=== PATIENT | female | born 1965 | race Caucasian/White ===

== ENCOUNTER 2017-02-17 11:36 | Observation (INO) | payer OTHER ==
[2017-02-17] VITALS (8 sets, daily range): BP systolic 114–130; BP diastolic 65–80; PULSE 74–103; RESP 16–20; TEMP 97.8–98.7; O2SAT 95–99
[~2017-02-17] VITALS: Ht 157.5 cm; Wt 63.9 kg
[~2017-02-17 11:36] MED LIST: AMLO5 PO; ARIP2 PO; ATEN-102 PO; LEVA500T PO; LEVO.1 PO; PANT40IN3 PO; PAXI40TA PO; SIMV40TA PO; THIA100T PO
[2017-02-17] MEDS ORDERED: LEVO.1 PO (11:50)
[2017-02-17] MEDS ORDERED: ZOCO40TA PO (11:50)
[2017-02-17] MEDS ORDERED: PAXI30TA7 PO (11:50)
[2017-02-17] MEDS ORDERED: ATEN50TA PO (11:50)
[2017-02-17] MEDS ORDERED: ABIL2TAB2 PO (11:50)
--- NOTE | 2017-02-17 12:06 | PD ---
HPI Chief Complaint: GI Complaint Time Seen by Provider: 12:06 Travel History International Travel<30 days: No Contact w/Intl Traveler<30days: No Traveled to known affect area: No History of Present Illness HPI 51-year-old female presents to the emergency department for evaluation of flulike symptoms 7 ongoing for 1 week. She reports body aches, intermittent fevers, nausea, vomiting, diarrhea, cough, intermittent wheezing, intermittent shortness of breath. Patient states she ran a 101 fever yesterday. She's had no fever today. She does report a history of COPD, history of pneumonia, hypertension, alcoholism, hypothyroidism, depression, hyperlipidemia, migraines. She states she has used an inhaler today without improvement. She also reports history of alcoholism. She states that she normally drinks 3 alcoholic drinks a 10% alcohol content, but drinks 6 of these yesterday. She states she would like to detox is not drinking anything since. She does report a history of alcohol withdrawal seizures. Patient is concerned she will have a seizure. She states her last seizure was in July 2016 from alcohol withdrawal. PFSH Past Medical History Hx Anticoagulant Therapy: No Arthritis: Yes Asthma: No Blood Disorders: No Bipolar Disorder: Yes Anxiety: Yes Depression: Yes Cancer: No Cardiovascular Problems: Yes (HBP) High Cholesterol: Yes Chemotherapy: No COPD: Yes Cerebrovascular Accident: No Diabetes: No Diminished Hearing: No Endocrine: Yes Gastrointestinal Disorders: Yes GERD: Yes Genitourinary: No Headaches: Yes Hiatal Hernia: No Immune Disorder: No Implanted Vascular Access Dvce: No Musculoskeletal: Yes Neurologic: Yes (seizures) Psychiatric: Yes (PTSD) Reproductive: No Respiratory: Yes (COPD) Migraines: Yes Radiation Therapy: No Seizures: Yes (APPROX 1 YR AGO) Sleep Apnea: No Thyroid Disease: Yes Ulcer: No Tetanus Vaccination: > 5 Years Influenza Vaccination: Yes ?: Not Menopausal: Yes : 3 Para: 0 Miscarriage: 3 : 0 Past Surgical History AICD: No Arteriovenous Shunt: No Gynecologic Surgery: Yes (LAPAROSCOPIC OVARIAN CYST REMOVAL LEFT) Hysterectomy: No Insulin Pump: No Joint Replacement: No Pacemaker: No Thoracic Surgery: Yes (DILITATION ESOPHAGEAL 12/29) Other Surgery: Yes (Laproscopy) Social History Alcohol Use: Yes (DAILY) Tobacco Use: Yes (1/2 PPD) Substance Use: Yes (MARIJUANA 1-2 TIMES A WEEK) Allergies-Medications (Allergen,Severity, Reaction): Coded Allergies: Codeine (Verified Adverse Reaction, Severe, Itching, 02/17/17) Haldol (Verified Adverse Reaction, Severe, Nausea/Vomiting, 02/17/17) Toradol (Verified Adverse Reaction, Severe, 02/17/17) MAKES HER "WALK SIDEWAYS" AND "RUN INTO THINGS" Tramadol (Verified Adverse Reaction, Severe, 02/17/17) MAKE HER "WALK SIDEWAYS" AND "RUN INTO THINGS" Trazodone (Verified Adverse Reaction, Severe, Hallucinations, 02/17/17) Reported Meds & Prescriptions Reported Meds & Active Scripts Active Reported Zocor (Simvastatin) 40 Mg Tab 40 Mg PO DAILY Abilify (Aripiprazole) 2 Mg Tab 2 Mg PO DAILY Atenolol 50 Mg Tab 50 Mg PO DAILY Synthroid (Levothyroxine Sodium) 100 Mcg Tab 100 Mcg PO DAILY Paxil (Paroxetine HCl) 30 Mg Tab 30 Mg PO DAILY Review of Systems Except as stated in HPI: all other systems reviewed are Neg Physical Exam Narrative GENERAL: Well-nourished, well-developed female patient, ambulatory. Afebrile. SKIN: Focused skin assessment warm/dry. HEAD: Normocephalic. Atraumatic. EYES: No scleral icterus. No injection or drainage. NECK: Supple, trachea midline. No JVD or lymphadenopathy. CARDIOVASCULAR: Regular rate and rhythm without murmurs, gallops, or rubs. RESPIRATORY: Breath sounds equal bilaterally. No accessory muscle use. Lungs sounds were slight expiratory wheezes, diminished throughout.. GASTROINTESTINAL: Abdomen soft, non-tender, nondistended. MUSCULOSKELETAL: No cyanosis, or edema. BACK: Nontender without obvious deformity. No CVA tenderness. Data Data Last Documented VS Vital Signs Date Time Temp Pulse Resp B/P Pulse Ox O2 Delivery O2 Flow Rate FiO2 02/17/17 12:05 97 Room Air 02/17/17 12:05 18 02/17/17 11:42 97.8 74 130/80 Orders Complete Blood Count With Diff (02/17/17 12:02) Comprehensive Metabolic Panel (02/17/17 12:02) Magnesium (Mg) (02/17/17 12:02) Ckmb (Isoenzyme) Profile (02/17/17 12:02) Troponin I (02/17/17 12:02) Urinalysis - C+S If Indicated (02/17/17 12:02) Iv Access Insert/Monitor (02/17/17 12:02) Electrocardiogram (02/17/17 12:02) Ecg Monitoring (02/17/17 12:02) Oximetry (02/17/17 12:02) Oxygen Administration (02/17/17 12:02) Sodium Chloride 0.9% Flush (Ns Flush) (02/17/17 12:15) Methylprednisolone So Succ Inj (Solumedr (02/17/17 12:15) Albuterol-Ipratropium Neb (Duoneb Neb) (02/17/17 12:15) Alcohol (Ethanol) (02/17/17 12:02) Ondansetron Inj (Zofran Inj) (02/17/17 12:15) Sodium Chlor 0.9% 1000 Ml Inj (Ns 1000 M (02/17/17 12:15) Lorazepam (Ativan) (02/17/17 12:30) Chest, Single Ap (02/17/17 ) Blood Culture (02/17/17 13:36) Lactic Acid Sepsis Protocol (02/17/17 13:36) Ceftriaxone Inj (Rocephin Inj) (02/17/17 13:45) Azithromycin Inj (Zithromax Inj) (02/17/17 13:45) Aripiprazole (Abilify) (02/18/17 09:00) Atenolol (Tenormin) (02/18/17 09:00) Levothyroxine (Synthroid) (02/18/17 09:00) (Nf) Paroxetine (Paxil) (02/18/17 09:00) (Nf) Simvastatin (Zocor) (02/18/17 09:00) Labs Laboratory Tests Test 02/17/17 02/17/17 12:01 12:08 Urine Color YELLOW Urine Turbidity CLEAR Urine pH 6.5 Urine Specific [place] 1.006 Urine Protein 30 mg/dL Urine Glucose (UA) NEG mg/dL Urine Ketones NEG mg/dL Urine Occult Blood SMALL Urine Nitrite NEG Urine Bilirubin NEG Urine Urobilinogen LESS THAN 2.0 MG/DL Urine Leukocyte Esterase NEG Urine RBC 1 /hpf Urine WBC LESS THAN 1 /hpf Urine Squamous Epithelial 2 /hpf Cells Urine Hyaline Casts 1 /lpf Microscopic Urinalysis Comment CULT NOT INDICATED White Blood Count 19.7 TH/MM3 Red Blood Count 4.75 MIL/MM3 Hemoglobin 13.2 GM/DL Hematocrit 40.0 % Mean Corpuscular Volume 84.2 FL Mean Corpuscular Hemoglobin 27.9 PG Mean Corpuscular Hemoglobin 33.1 % Concent Red Cell Distribution Width 18.0 % Platelet Count 393 TH/MM3 Mean Platelet Volume 8.5 FL Neutrophils (%) (Auto) 86.7 % Lymphocytes (%) (Auto) 7.5 % Monocytes (%) (Auto) 4.5 % Eosinophils (%) (Auto) 0.9 % Basophils (%) (Auto) 0.4 % Neutrophils # (Auto) 17.1 TH/MM3 Lymphocytes # (Auto) 1.5 TH/MM3 Monocytes # (Auto) 0.9 TH/MM3 Eosinophils # (Auto) 0.2 TH/MM3 Basophils # (Auto) 0.1 TH/MM3 CBC Comment DIFF FINAL Differential Comment Sodium Level 129 MEQ/L Potassium Level 3.7 MEQ/L Chloride Level 92 MEQ/L Carbon Dioxide Level 22.3 MEQ/L Anion Gap 15 MEQ/L Blood Urea Nitrogen 5 MG/DL Creatinine 0.50 MG/DL Estimat Glomerular Filtration 129 ML/MIN Rate Random Glucose 91 MG/DL Calcium Level 8.9 MG/DL Magnesium Level 2.2 MG/DL Total Bilirubin 0.6 MG/DL Aspartate Amino Transf 33 U/L (AST/SGOT) Alanine Aminotransferase 14 U/L (ALT/SGPT) Alkaline Phosphatase 135 U/L Total Creatine Kinase 35 U/L Troponin I LESS THAN 0.02 NG/ML Total Protein 7.6 GM/DL Albumin 2.5 GM/DL Ethyl Alcohol Level LESS THAN 3 MG/DL MDM Medical Decision Making Medical Screen Exam Complete: Yes Emergency Medical Condition: Yes Medical Record Reviewed: Yes Interpretation(s) Last Impressions Chest X-Ray 02/17/17 0000 Signed Impressions: Service Date/Time: Friday, February 17, 2017 12:46 - CONCLUSION: Subtle patchy interstitial densities could be acute or chronic. Christ Saucedo MD Differential Diagnosis URI versus viral syndrome versus pneumonia versus alcohol withdrawal Narrative Course 51-year-old female presents to the emergency department for evaluation of flulike symptoms for the past week. She does report drinking 6 large alcoholic drink yesterday, but has not had anything to drink today. She is concerned of alcohol withdrawal. EKG, CBC, CMP, magnesium, CK, troponin, alcohol level, UA are ordered and pending. Chest x-ray is ordered and pending. Patient is given Solumedrol 125 mg IV, DuoNeb 3. Patient is given normal saline 1 L IV bolus. EKG shows sinus rhythm, heart rate 69, no acute ST changes. CBC shows leukocytosis 19.7, neutrophil percentage 86.7. CMP shows hyponatremia 129, alkaline phosphatase 135. Magnesium is 2.2. CK is 35. Troponin is less than 0.02. Alcohol level is less than 3. UA is negative for acute infection. Chest x-ray shows subtle patchy interstitial densities could be acute or chronic. Blood cultures 2 and lactic acid are ordered and pending. Due to elevated white count, the patient will be brought in for 23 observation for pneumonia. She is given Rocephin 1 g IV and azithromycin 500 mg IV. I discussed case with my attending physician, Dr. Denis, who recommends admission. [facility] is paged for admission. Dr. Ren accepted admission. Diagnosis Primary Impression: Pneumonia Qualified Code: J18.9 - Pneumonia due to infectious organism, unspecified laterality, unspecified part of lung Admitting Information Admitting Physician Requests: Observation Betty Adkins February 17, 2017 12:06
[2017-02-17] MEDS ORDERED: ONDANSETRON HCL 4 MG/2 ML VIAL IV PUSH ONE (12:15)
[2017-02-17] MEDS ORDERED: SODIUM CHLORIDE 0.9% FLUSH 10 ML FLUSH IVF PRN (12:15)
[2017-02-17] MEDS ORDERED: SODIUM CHLOR 0.9% 1000 ML INJ 1,000 ML IV ONE (12:15)
[2017-02-17] MEDS ORDERED: methylPREDNISolone SOD SUCC 125 MG/2 ML VIAL IVP ONE (12:15)
[2017-02-17] MEDS: RESP: ALBUTEROL 2.5 MG/IPRATROPIUM 0.5 MG NEB (SCH) INH (12:16)
[2017-02-17] MEDS ORDERED: LORazepam 1 MG TAB PO ONE (12:30)
[2017-02-17 12:57] LABS: AUTOMATED NEUTROPHIL # 17.1 TH/MM3 (1.8-7.7); BASOPHIL # 0.1 TH/MM3 (0-0.2); BASOPHIL % 0.4 % (0.0-2.0); EOSINOPHIL # 0.2 TH/MM3 (0-0.4); EOSINOPHIL % 0.9 % (0.0-4.0); HEMO FLAGS DIFF FINAL; LYMPH % 7.5 % (9.0-44.0); LYMPHOCYTE # 1.5 TH/MM3 (1.0-4.8); MEAN CELL VOLUME 84.2 FL (80.0-100.0); MEAN CORPUSCULAR HEMOGLOBIN 27.9 PG (27.0-34.0); MEAN CORPUSCULAR HGB CONC 33.1 % (32.0-36.0); MONO % 4.5 % (0.0-8.0); NEUT % 86.7 % (16.0-70.0); PLATELET COUNT 393 TH/MM3 (150-450); RED BLOOD COUNT 4.75 MIL/MM3 (4.00-5.30); WHITE BLOOD COUNT 19.7 TH/MM3 (4.0-11.0)
[2017-02-17 13:08] LABS: BLOOD, URINE SMALL (NEG); COMMENT (UR) CULT NOT INDICATED; CULTURE IF INDICATED CULT NOT INDICATED; GLUCOSE,URINE NEG (NEG); HYALINE CAST, URINE 1 /lpf (RARE); KETONE, URINE NEG (NEG); NITRITE,URINE NEG (NEG); PH, URINE 6.5 (5.0-8.5); SQUAMOUS EPITHELIAL CELL URINE 2 /hpf (0-5); URINE COLOR YELLOW (YELLW/STRAW)
[2017-02-17 13:20] LABS: ANION GAP 15 MEQ/L (5-15)
--- NOTE | 2017-02-17 13:23 | RADRPT ---
EXAM DATE/TIME: 02/17/2017 12:46 [facility] COMPARISON: CHEST PA & LAT, August 07, 2016, 14:54. CHEST SINGLE AP, January 01, 2016, 8:05. INDICATIONS : Short of breath, sharp pain upper left chest from anterior side to posterior, smoker MEDICAL HISTORY : Chronic obstructive pulmonary disease. pneumothorax with chest tube years ago SURGICAL HISTORY : None. ENCOUNTER: Initial ACUITY: 2 days PAIN SCORE: 7/10 LOCATION: Left chest FINDINGS: A single view of the chest demonstrates subtle patchy interstitial densities. Heart normal size. Oss eous structures are intact. Scoliotic changes. CONCLUSION: Subtle patchy interstitial densities could be acute or chronic. Christ Saucedo MD on February 17, 2017 at 13:19 Board Certified Radiologist. This report was verified electronically.
[2017-02-17 13:24] LABS: ALKALINE PHOSPHATASE 135 U/L (45-117); ALT (GPT) 14 U/L (10-53); AST (GOT) 33 U/L (15-37); BICARBONATE 22.3 MEQ/L (21.0-32.0); BLOOD UREA NITROGEN 5 MG/DL (7-18); CHLORIDE 92 MEQ/L (98-107); GLOMERULAR FILTRATION RATE 129 ML/MIN (>89); MAGNESIUM 2.2 MG/DL (1.5-2.5); POTASSIUM 3.7 MEQ/L (3.5-5.1); SODIUM (NA) 129 MEQ/L (136-145); TOTAL BILIRUBIN ADULT 0.6 MG/DL (0.2-1.0)
[2017-02-17 13:26] LABS: CREATINE KINASE 35 U/L (26-192)
[2017-02-17] MEDS ORDERED: AZITHROMYCIN INJ 500 MG in SODIUM CHLOR 0.9% 250 ML INJ 250 ML IV ONE (13:45)
[2017-02-17] MEDS ORDERED: cefTRIAXone INJ 1,000 MG in SODIUM CHLORIDE 0.9% INJ 100 ML IV ONE (13:45)
[2017-02-17] MEDS ORDERED: NALOXONE HCL 0.4 MG/ML AMP IV PRN (14:30)
[2017-02-17] MEDS ORDERED: BISACODYL 10 MG SUPP RECTAL PRN (14:30)
[2017-02-17] MEDS ORDERED: SODIUM CHLORIDE 0.9% FLUSH 10 ML FLUSH IV FLUSH PRN (14:30)
[2017-02-17] MEDS ORDERED: FLUMAZENIL 0.5 MG/5 ML VIAL IV PUSH PRN (14:45)
[2017-02-17] MEDS ORDERED: LORazepam 2 MG/ML VIAL IV PUSH PRN (14:45)
[2017-02-17] MEDS ORDERED: LORazepam 2 MG TAB PO PRN (14:45)
--- NOTE | 2017-02-17 14:57 | HHI.HP ---
[facility] Service [facility] Primary Care Physician Jose Elias [facility] Admission Diagnosis pneumonia, possible alcohol withdrawal Diagnoses: Chief Complaint: SOB for the last three days. Travel History International Travel<30 Days: No Contact w/Intl Traveler <30 Da: No Traveled to Known Affected Are: No History of Present Illness This is a pleasant 51 y/o Female who came to ER with flu like symptoms, for the last week, intermittent fever, Nausea, vomit diarrhea, cough, Intermittent wheezing, Intermittent shortness of breath, fever 101 F. 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 Patient is concerned she will have a seizure. She states her last seizure was in July 2016 from alcohol withdrawal. the patient states she is been having SOB, fever, malaise for the last one week , but since three days ago tried to detox herself at home then say she drank six beers yesterday, she was seen by [place] and was prescribed Ciprofloxacin, Tessalon pearls antihistamine medicine without improvement, decided to some today for evaluation. Past Family Social History Past Medical History OA Bipolar disorder Anxiety disorder Depression CAD COPD Hypertension GERD Seizures secondary to alcohol withdrawal. PTSD Hypothyroidism Past Surgical History Laparoscopic Ovarian cyst removal on the left Esophageal Dilatation Reported Medications Reported Meds & Active Scripts Active Reported Zocor (Simvastatin) 40 Mg Tab 40 Mg PO DAILY Abilify (Aripiprazole) 2 Mg Tab 2 Mg PO DAILY Atenolol 50 Mg Tab 50 Mg PO DAILY Synthroid (Levothyroxine Sodium) 100 Mcg Tab 100 Mcg PO DAILY Paxil (Paroxetine HCl) 30 Mg Tab 30 Mg PO DAILY Allergies: Coded Allergies: Codeine (Verified Adverse Reaction, Severe, Itching, 02/17/17) Haldol (Verified Adverse Reaction, Severe, Nausea/Vomiting, 02/17/17) Toradol (Verified Adverse Reaction, Severe, 02/17/17) MAKES HER "WALK SIDEWAYS" AND "RUN INTO THINGS" Tramadol (Verified Adverse Reaction, Severe, 02/17/17) MAKE HER "WALK SIDEWAYS" AND "RUN INTO THINGS" Trazodone (Verified Adverse Reaction, Severe, Hallucinations, 02/17/17) Active Ordered Medications Current Medications Medications (Trade) Dose Ordered Sig/Ev[place] Route Start Time Stop Time Status Last Admin (Abilify) 2 mg DAILY PO 02/18/17 09:00 (Tenormin) 50 mg DAILY PO 02/18/17 09:00 (Synthroid) 100 mcg DAILY@0600 PO 02/18/17 06:00 (Paxil) 30 mg DAILY PO 02/18/17 09:00 Pravastatin Sodium 80 mg 80 mg DAILY PO 02/18/17 09:00 (NS 1000 ml Inj) 1,000 ml @ 100 mls/hr Q10H IV 02/17/17 15:00 02/17/17 15:06 (NS Flush) 2 ml UNSCH PRN IV FLUSH 02/17/17 14:30 (NS Flush) 2 ml BID IV FLUSH 02/17/17 21:00 (Tylenol) 650 mg Q4H PRN PO 02/17/17 14:30 (Zofran Inj) 4 mg Q6H PRN IVP 02/17/17 14:30 (Dulcolax Supp) 10 mg DAILY PRN RECTAL 02/17/17 14:30 (Colace) 100 mg Q12HR PO 02/17/17 14:45 02/17/17 15:06 (Lovenox Inj) 40 mg Q24H SQ 02/17/17 15:00 02/17/17 15:06 (Narcan Inj) 0.4 mg UNSCH PRN IV 02/17/17 14:30 (Romazicon Inj) 0.2 mg Q1M PRN IV PUSH 02/17/17 14:45 (Ativan) 1 mg Q4H PRN PO 02/17/17 14:45 02/17/17 17:29 (Ativan Inj) 1 mg Q4H PRN IV PUSH 02/17/17 14:45 Lorazepam 1 mg 1 mg Q2H PRN PO 02/17/17 14:45 Multivitamins 10 ml/Folic Acid 1 mg/Sodium Chloride 510.2 ml @ 125 mls/hr Q24H IV 02/17/17 16:00 02/22/17 15:59 02/17/17 15:44 (Thiamine Inj/NS Inj) 101 ml @ 100 mls/hr Q24H IV 02/17/17 15:00 02/20/17 14:59 02/17/17 15:07 (Vitamin B1) 100 mg DAILY PO 02/21/17 09:00 (Mucinex Er) 600 mg BID PO 02/17/17 21:00 Miscellaneous 1 ea 1 ea UNSCH PRN OTHER 02/18/17 09:00 Ceftriaxone Sodium 1000 mg/ Sodium Chloride 100 ml @ 200 mls/hr Q24H IV 02/18/17 09:00 (Zithromax Inj/ NS 250 ml Inj) 250 ml @ 250 mls/hr Q24H IV 02/18/17 09:00 Family History Asked and denied. Social History Alcohol abuse daily, Smokes half pack cigarettes daily, Smokes Marijuana Physical Exam Vital Signs Vital Signs Date Time Temp Pulse Resp B/P Pulse Ox O2 Delivery O2 Flow Rate FiO2 02/17/17 12:05 97 Room Air 02/17/17 12:05 18 98 Room Air 02/17/17 11:50 17 02/17/17 11:42 97.8 74 18 130/80 99 Physical Exam GENERAL: Well-nourished, well-developed female patient, ambulatory. Afebrile. SKIN: Focused skin assessment warm/dry. HEAD: Normocephalic. Atraumatic. EYES: No scleral icterus. No injection or drainage. NECK: Supple, trachea midline. No JVD or lymphadenopathy. CARDIOVASCULAR: Regular rate and rhythm without murmurs, gallops, or rubs. RESPIRATORY: Decreased breath sounds bilateral, no wheezing or crackles. GASTROINTESTINAL: Abdomen soft, non-tender, nondistended. MUSCULOSKELETAL: No cyanosis, or edema. BACK: Nontender without obvious deformity. No CVA tenderness. Laboratory Laboratory Tests Test 02/17/17 02/17/17 02/17/17 12:01 12:08 13:40 Urine Color YELLOW Urine Turbidity CLEAR Urine pH 6.5 Urine Specific [place] 1.006 Urine Protein 30 Urine Glucose (UA) NEG Urine Ketones NEG Urine Occult Blood SMALL Urine Nitrite NEG Urine Bilirubin NEG Urine Urobilinogen LESS THAN 2.0 Urine Leukocyte Esterase NEG Urine RBC 1 Urine WBC LESS THAN 1 Urine Squamous Epithelial 2 Cells Urine Hyaline Casts 1 Microscopic Urinalysis Comment CULT NOT INDICATED White Blood Count 19.7 Red Blood Count 4.75 Hemoglobin 13.2 Hematocrit 40.0 Mean Corpuscular Volume 84.2 Mean Corpuscular Hemoglobin 27.9 Mean Corpuscular Hemoglobin 33.1 Concent Red Cell Distribution Width 18.0 Platelet Count 393 Mean Platelet Volume 8.5 Neutrophils (%) (Auto) 86.7 Lymphocytes (%) (Auto) 7.5 Monocytes (%) (Auto) 4.5 Eosinophils (%) (Auto) 0.9 Basophils (%) (Auto) 0.4 Neutrophils # (Auto) 17.1 Lymphocytes # (Auto) 1.5 Monocytes # (Auto) 0.9 Eosinophils # (Auto) 0.2 Basophils # (Auto) 0.1 CBC Comment DIFF FINAL Differential Comment Sodium Level 129 Potassium Level 3.7 Chloride Level 92 Carbon Dioxide Level 22.3 Anion Gap 15 Blood Urea Nitrogen 5 Creatinine 0.50 Estimat Glomerular Filtration 129 Rate Random Glucose 91 Calcium Level 8.9 Magnesium Level 2.2 Total Bilirubin 0.6 Aspartate Amino Transf 33 (AST/SGOT) Alanine Aminotransferase 14 (ALT/SGPT) Alkaline Phosphatase 135 Total Creatine Kinase 35 Troponin I LESS THAN 0.02 Total Protein 7.6 Albumin 2.5 Ethyl Alcohol Level LESS THAN 3 Lactic Acid Level 2.1 Date/Time Procedure Status Source Growth 02/17/17 13:40 Aerobic Blood Culture Received Blood Peripheral Pending 02/17/17 13:40 Anaerobic Blood Culture Received Blood Peripheral Pending Result Diagram: 02/17/17 1208 02/17/17 1208 Imaging Last Impressions Chest X-Ray 02/17/17 0000 Signed Impressions: Service Date/Time: Friday, February 17, 2017 12:46 - CONCLUSION: Subtle patchy interstitial densities could be acute or chronic. Christ Saucedo MD Assessment and Plan Assessment and Plan 1. Pneumonia, CXR showed subtle patchy interstitial densities, continue Azithromycin and Ceftriaxone. follow blood cultures, legionella antigen and pneumococcal antigen 2. Medical non compliance she states is not taking her medicines 3. OA by history 4. Bipolar disorder/Depression/Anxiety disorder to continue home medicines 5. CAD/Hypertension continue Home medicines 6. COPD on Bronchodilator, mucolytic and incentive spirometry no signs of exacerbation 7. GERD on GI protection with Protonix. 8. Hypothyroidism continue Hormonal replacement. DVT prophylaxis with Lovenox Code Status Full Code. Discussed Condition With Patient and ER Physician Certification 2 Midnight Certification Type: Admission for Inpatient Services Order for Inpatient Services The services are ordered in accordance with Medicare regulations or non- Medicare payer requirements, as applicable. In the case of services not specified as inpatient-only, they are appropriately provided as inpatient services in accordance with the 2-midnight benchmark. Estimated LOS (days): 3 days is the estimated time the patient will need to remain in the hospital, assuming treatment plan goals are met and no additional complications. Post-Hospital Plan: Not yet determined Kulwinder Crawford MD February 17, 2017 14:57
[2017-02-17] MEDS: DOCUSATE SODIUM 100 MG CAP PO SCH ×2 (15:06→21:00)
[2017-02-17] MEDS: SODIUM CHLOR 0.9% 1000 ML INJ 1,000 ML IV SCH (15:06)
[2017-02-17] MEDS: ENOXAPARIN SODIUM 40 MG/0.4 ML SYRINGE SQ SCH (15:06)
[2017-02-17] MEDS: THIAMINE INJ 100 MG in SODIUM CHLORIDE 0.9% INJ 100 ML IV SCH (15:07)
[2017-02-17] MEDS: MULTIVITAMIN INJ 10 ML, FOLIC ACID INJ 1 MG in SODIUM CHLORID 0.9% 500 ML INJ 500 ML IV SCH (15:44)
[2017-02-17 16:07] LABS: LACTIC ACID GHOST NOT REPORTABLE
[2017-02-17] MEDS: RESP: ALBUTEROL 2.5 MG/IPRATROPIUM 0.5 MG NEB (SCH) NEB ×2 (16:51→20:11)
[2017-02-17 17:14] LABS: BICARBONATE 23.6 MEQ/L (21.0-32.0); POTASSIUM 3.5 MEQ/L (3.5-5.1)
[2017-02-17] MEDS: LORazepam 1 MG TAB PO PRN ×2 (17:29→21:48)
--- NOTE | 2017-02-17 18:25 | EKG ---
Date Performed: 02/17/2017 Time Performed: 12:21:01 PTAGE: 51 years EKG: Sinus rhythm NORMAL ECG PREVIOUS TRACING : 08/07/2016 05.12 No significant change from previous tracing noted. DOCTOR: Myron Francis Interpretating Date/Time 02/17/2017 18:24:03
[2017-02-17] MEDS: ACETAMINOPHEN 325 MG TAB PO PRN (18:38)
[2017-02-17] MEDS: guaiFENesin E.R. 600 MG TAB PO SCH (21:48)
[2017-02-17] MEDS: SODIUM CHLORIDE 0.9% FLUSH 10 ML FLUSH IV FLUSH SCH (21:50)
[2017-02-17] MEDS: ONDANSETRON HCL 4 MG/2 ML VIAL IVP PRN (21:52)
[2017-02-17 21:53] LABS: CREATINE KINASE 34 U/L (26-192)
[2017-02-18] VITALS (13 sets, daily range): BP systolic 135–163; BP diastolic 71–93; PULSE 79–109; RESP 16–20; TEMP 97.4–99.3; O2SAT 91–97
[2017-02-18] MEDS: LORazepam 1 MG TAB PO PRN ×6 (00:30→20:46)
[2017-02-18] MEDS: SODIUM CHLOR 0.9% 1000 ML INJ 1,000 ML IV SCH ×3 (00:31→20:47)
[2017-02-18 03:28] LABS: AUTOMATED NEUTROPHIL # 8.4 TH/MM3 (1.8-7.7); BASOPHIL % 0.4 % (0.0-2.0); HEMATOCRIT 35.4 % (35.0-46.0); HEMO FLAGS DIFF FINAL; LYMPH % 8.9 % (9.0-44.0); LYMPHOCYTE # 0.9 TH/MM3 (1.0-4.8); MEAN CORPUSCULAR HEMOGLOBIN 28.1 PG (27.0-34.0); MEAN CORPUSCULAR HGB CONC 32.7 % (32.0-36.0); MONO % 6.9 % (0.0-8.0); NEUT % 83.8 % (16.0-70.0); PLATELET COUNT 316 TH/MM3 (150-450); RED BLOOD COUNT 4.12 MIL/MM3 (4.00-5.30); RED CELL DISTRIBUTION WIDTH 17.2 % (11.6-17.2); WHITE BLOOD COUNT 10.1 TH/MM3 (4.0-11.0)
[2017-02-18 03:39] LABS: INTERNATIONAL NORMALIZED RATIO 0.9 RATIO; PROTHROMBIN TIME - PATIENT 9.9 SEC (9.8-11.6)
[2017-02-18] MEDS: RESP: ALBUTEROL 2.5 MG/IPRATROPIUM 0.5 MG NEB (SCH) NEB ×7 (03:40→23:55)
[2017-02-18 04:08] LABS: FREE T4 0.83 NG/DL (0.76-1.46); HDL CHOLESTEROL 47.2 MG/DL (40.0-60.0); LDL CHOLESTEROL 55 MG/DL (0-99)
[2017-02-18 04:21] LABS: CREATINE KINASE 25 U/L (26-192)
[2017-02-18] MEDS: LEVOTHYROXINE SODIUM 100 MCG TAB PO SCH (04:48)
--- NOTE | 2017-02-18 07:54 | HHI.PR ---
Subjective Remarks This is a pleasant 51 y/o Female who came to ER with flu like symptoms, for the last week, intermittent fever, Nausea, vomit diarrhea, cough, Intermittent wheezing, Intermittent shortness of breath, fever 101 F. 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 Patient is concerned she will have a seizure. She states her last seizure was in July 2016 from alcohol withdrawal. the patient states she is been having SOB, fever, malaise for the last one week , but since three days ago tried to detox herself at home then say she drank six beers yesterday, [facility] C[facility]fl[facility], Tessalon pearls antihistamine medicine without improvement, decided to some today for evaluation. 02/18: Seen in her bedroom, discussed with nurse, refused Nicotine patch, states is improved, no nausea, vomit or diarrhea, continue present care, no signs of withdrawal. Objective Vital Signs Date Time Temp Pulse Resp B/P Pulse Ox O2 Delivery O2 Flow Rate FiO2 02/18/17 04:00 97.4 100 20 135/71 95 02/18/17 03:41 91 21 02/18/17 00:55 95 21 02/18/17 00:00 97.8 92 18 137/85 95 02/17/17 20:11 98 21 02/17/17 20:00 98.7 95 16 114/65 95 02/17/17 17:59 98.6 97 20 116/73 95 02/17/17 17:40 86 17 122/71 97 02/17/17 15:08 97.8 81 18 124/66 97 Room Air 02/17/17 12:05 97 Room Air 02/17/17 12:05 18 98 Room Air 02/17/17 11:50 17 02/17/17 11:42 97.8 74 18 130/80 99 I/O 02/17/17 02/17/17 02/17/17 02/18/17 02/18/17 02/18/17 07:00 15:00 23:00 07:00 15:00 23:00 Intake Total 720 ml Balance 720 ml Intake Oral 720 ml # Voids 3 # Bowel Movements 0 Result Diagram: 02/18/17 0318 02/17/17 1530 Imaging Last Impressions Chest X-Ray 02/17/17 0000 Signed Impressions: Service Date/Time: Friday, February 17, 2017 12:46 - CONCLUSION: Subtle patchy interstitial densities could be acute or chronic. Christ Saucedo MD Procedures No procedures performed. Other Results Laboratory Tests Test 02/17/17 02/17/17 02/17/17 02/17/17 12:01 12:08 15:30 20:43 Urine Color YELLOW Urine Turbidity CLEAR Urine pH 6.5 Urine Specific [place] 1.006 Urine Protein 30 mg/dL Urine Glucose (UA) NEG mg/dL Urine Ketones NEG mg/dL Urine Occult Blood SMALL Urine Nitrite NEG Urine Bilirubin NEG Urine Urobilinogen LESS THAN 2.0 MG/DL Urine Leukocyte Esterase NEG Urine RBC 1 /hpf Urine WBC LESS THAN 1 /hpf Urine Squamous Epithelial 2 /hpf Cells Urine Hyaline Casts 1 /lpf Microscopic Urinalysis Comment CULT NOT INDICATED Magnesium Level 2.2 MG/DL Total Bilirubin 0.6 MG/DL Aspartate Amino Transf 33 U/L (AST/SGOT) Alanine Aminotransferase 14 U/L (ALT/SGPT) Alkaline Phosphatase 135 U/L Total Protein 7.6 GM/DL Albumin 2.5 GM/DL Ethyl Alcohol Level LESS THAN 3 MG/DL Sodium Level 135 MEQ/L Potassium Level 3.5 MEQ/L Chloride Level 101 MEQ/L Carbon Dioxide Level 23.6 MEQ/L Anion Gap 10 MEQ/L Blood Urea Nitrogen 5 MG/DL Creatinine 0.56 MG/DL Estimat Glomerular Filtration 113 ML/MIN Rate Random Glucose 144 MG/DL Calcium Level 8.4 MG/DL Lactic Acid Level 3.1 mmol/L Test 02/18/17 03:18 White Blood Count 10.1 TH/MM3 Red Blood Count 4.12 MIL/MM3 Hemoglobin 11.6 GM/DL Hematocrit 35.4 % Mean Corpuscular Volume 86.0 FL Mean Corpuscular Hemoglobin 28.1 PG Mean Corpuscular Hemoglobin 32.7 % Concent Red Cell Distribution Width 17.2 % Platelet Count 316 TH/MM3 Mean Platelet Volume 7.8 FL Neutrophils (%) (Auto) 83.8 % Lymphocytes (%) (Auto) 8.9 % Monocytes (%) (Auto) 6.9 % Eosinophils (%) (Auto) 0.0 % Basophils (%) (Auto) 0.4 % Neutrophils # (Auto) 8.4 TH/MM3 Lymphocytes # (Auto) 0.9 TH/MM3 Monocytes # (Auto) 0.7 TH/MM3 Eosinophils # (Auto) 0.0 TH/MM3 Basophils # (Auto) 0.0 TH/MM3 CBC Comment DIFF FINAL Differential Comment Prothrombin Time 9.9 SEC Prothromb Time International 0.9 RATIO Ratio Phosphorus Level 2.4 MG/DL Total Creatine Kinase 25 U/L Troponin I LESS THAN 0.02 NG/ML Triglycerides Level 76 MG/DL Cholesterol Level 117 MG/DL LDL Cholesterol 55 MG/DL HDL Cholesterol 47.2 MG/DL Cholesterol/HDL Ratio 2.47 RATIO Lipase 102 U/L Free Thyroxine 0.83 NG/DL Thyroid Stimulating Hormone 1.560 uIU/ML 3rd Gen Objective Remarks GENERAL: Well-nourished, well-developed female patient, ambulatory. Afebrile. SKIN: Focused skin assessment warm/dry. HEAD: Normocephalic. Atraumatic. EYES: No scleral icterus. No injection or drainage. NECK: Supple, trachea midline. No JVD or lymphadenopathy. CARDIOVASCULAR: Regular rate and rhythm without murmurs, gallops, or rubs. RESPIRATORY: Decreased breath sounds bilateral, no wheezing or crackles. GASTROINTESTINAL: Abdomen soft, non-tender, nondistended. MUSCULOSKELETAL: No cyanosis, or edema. BACK: Nontender without obvious deformity. No CVA tenderness. Medications and IVs Current Medications Medications (Trade) Dose Ordered Sig/Evens Route Start Time Stop Time Status Last Admin (Abilify) 2 mg DAILY PO 02/18/17 09:00 (Tenormin) 50 mg DAILY PO 02/18/17 09:00 (Synthroid) 100 mcg DAILY@0600 PO 02/18/17 06:00 02/18/17 04:48 (Paxil) 30 mg DAILY PO 02/18/17 09:00 Pravastatin Sodium 80 mg 80 mg DAILY PO 02/18/17 09:00 (NS 1000 ml Inj) 1,000 ml @ 100 mls/hr Q10H IV 02/17/17 15:00 02/18/17 00:31 (NS Flush) 2 ml UNSCH PRN IV FLUSH 02/17/17 14:30 (NS Flush) 2 ml BID IV FLUSH 02/17/17 21:00 02/17/17 21:50 (Tylenol) 650 mg Q4H PRN PO 02/17/17 14:30 02/17/17 18:38 (Zofran Inj) 4 mg Q6H PRN IVP 02/17/17 14:30 02/17/17 21:52 (Dulcolax Supp) 10 mg DAILY PRN RECTAL 02/17/17 14:30 (Colace) 100 mg Q12HR PO 02/17/17 14:45 02/17/17 15:06 (Lovenox Inj) 40 mg Q24H SQ 02/17/17 15:00 02/17/17 15:06 (Narcan Inj) 0.4 mg UNSCH PRN IV 02/17/17 14:30 (Romazicon Inj) 0.2 mg Q1M PRN IV PUSH 02/17/17 14:45 (Ativan) 1 mg Q4H PRN PO 02/17/17 14:45 02/18/17 04:48 (Ativan Inj) 1 mg Q4H PRN IV PUSH 02/17/17 14:45 Lorazepam 1 mg 1 mg Q2H PRN PO 02/17/17 14:45 Multivitamins 10 ml/Folic Acid 1 mg/Sodium Chloride 510.2 ml @ 125 mls/hr Q24H IV 02/17/17 16:00 02/22/17 15:59 02/17/17 15:44 (Thiamine Inj/NS Inj) 101 ml @ 100 mls/hr Q24H IV 02/17/17 15:00 02/20/17 14:59 02/17/17 15:07 (Vitamin B1) 100 mg DAILY PO 02/21/17 09:00 (Mucinex Er) 600 mg BID PO 02/17/17 21:00 02/17/17 21:48 Miscellaneous 1 ea 1 ea UNSCH PRN OTHER 02/18/17 09:00 Ceftriaxone Sodium 1000 mg/ Sodium Chloride 100 ml @ 200 mls/hr Q24H IV 02/18/17 09:00 (Zithromax Inj/ NS 250 ml Inj) 250 ml @ 250 mls/hr Q24H IV 02/18/17 09:00 A/P Assessment and Plan 1. Pneumonia, CXR showed subtle patchy interstitial densities, continue Azithromycin and Ceftriaxone. follow blood cultures, legionella antigen and pneumococcal antigen, will need at least three days of IV antibiotics, will follow in am tomorrow with new CXR taken downstairs, no portable to have a better view. if no BSI change to by mouth antibiotics and discharge home. Leukocytosis decreased from 19.7 to 10.1 2. Medical non compliance she states is not taking her medicines 3. OA by history 4. Bipolar disorder/Depression/Anxiety disorder to continue home medicines 5. CAD/Hypertension continue Home medicines 6. COPD on Bronchodilator, mucolytic and incentive spirometry no signs of exacerbation 7. GERD on GI protection with Protonix. 8. Hypothyroidism continue Hormonal replacement. DVT prophylaxis with Lovenox Code Status Full Code. Discussed Condition With Patient and Nurse. Discharge Planning Expected by tomorrow. Kulwinder Crawford MD February 18, 2017 07:54
[2017-02-18] MEDS: AZITHROMYCIN INJ 500 MG in SODIUM CHLOR 0.9% 250 ML INJ 250 ML IV SCH (08:38)
[2017-02-18] MEDS: cefTRIAXone INJ 1,000 MG in SODIUM CHLORIDE 0.9% INJ 100 ML IV SCH (08:38)
[2017-02-18] MEDS: SODIUM CHLORIDE 0.9% FLUSH 10 ML FLUSH IV FLUSH SCH ×2 (08:38→20:46)
[2017-02-18] MEDS: PRAVASTATIN SOD 80 MG TAB PO SCH (08:41)
[2017-02-18] MEDS: DOCUSATE SODIUM 100 MG CAP PO SCH ×2 (08:41→20:46)
[2017-02-18] MEDS: guaiFENesin E.R. 600 MG TAB PO SCH ×2 (08:41→20:46)
[2017-02-18] MEDS: PARoxetine HCL 20 MG TAB PO SCH (08:41)
[2017-02-18] MEDS: ATENOLOL 50 MG TAB PO SCH (08:41)
[2017-02-18] MEDS: ARIPiprazole 2 MG TAB PO SCH (08:41)
[2017-02-18] MEDS ORDERED: PILL SPLITTER OTHER PRN (09:00)
[2017-02-18] MEDS: ACETAMINOPHEN 325 MG TAB PO PRN ×3 (09:08→19:35)
[2017-02-18] MEDS: THIAMINE INJ 100 MG in SODIUM CHLORIDE 0.9% INJ 100 ML IV SCH (13:53)
[2017-02-18] MEDS: ENOXAPARIN SODIUM 40 MG/0.4 ML SYRINGE SQ SCH (13:54)
[2017-02-18 14:01] LABS: HEMOGLOBIN A1a 1.1 %; HEMOGLOBIN A1b 0.9 %; HEMOGLOBIN Ao 85.2 %; HEMOGLOBIN F 0.7 %; HEMOGLOBIN LA1C 2.4 %; HEMOGLOBIN P3 5.5 %
[2017-02-18] MEDS: MULTIVITAMIN INJ 10 ML, FOLIC ACID INJ 1 MG in SODIUM CHLORID 0.9% 500 ML INJ 500 ML IV SCH (15:43)
[2017-02-18] MEDS: ONDANSETRON HCL 4 MG/2 ML VIAL IVP PRN (19:35)
[2017-02-19] MEDS: LORazepam 1 MG TAB PO PRN ×6 (00:31→16:25)
[2017-02-19] MEDS: RESP: ALBUTEROL 2.5 MG/IPRATROPIUM 0.5 MG NEB (SCH) NEB ×4 (03:27→15:14)
[2017-02-19 04:52] VITALS: BP 157/81; PULSE 92; RESP 16; TEMP 97.6; O2SAT 94
[2017-02-19] MEDS: LEVOTHYROXINE SODIUM 100 MCG TAB PO SCH (05:00)
[2017-02-19] MEDS: SODIUM CHLOR 0.9% 1000 ML INJ 1,000 ML IV SCH (05:00)
[2017-02-19 07:38] VITALS: PULSE 85
[2017-02-19 08:00] VITALS: BP_SYST 162; BP_SYST 175; BP_DIAS 89; BP_DIAS 90; PULSE 93; RESP 20; TEMP 98; O2SAT 93
--- NOTE | 2017-02-19 08:13 | HHI.PR ---
Subjective Remarks This is a pleasant 51 y/o Female who came to ER with flu like symptoms, for the last week, intermittent fever, Nausea, vomit diarrhea, cough, Intermittent wheezing, Intermittent shortness of breath, fever 101 F. 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 Patient is concerned she will have a seizure. She states her last seizure was in July 2016 from alcohol withdrawal. the patient states she is been having SOB, fever, malaise for the last one week , but since three days ago tried to detox herself at home then say she drank six beers yesterday, [facility] Ciprofloxacin, Tessalon pearls antihistamine medicine without improvement, decided to some today for evaluation. 02/18: Seen in her bedroom, discussed with nurse, refused Nicotine patch, states is improved, no nausea, vomit or diarrhea, continue present care, no signs of withdrawal. 02/19: Patient in her bedroom, stable continue antibiotics, today asked for Headache medicine started on Fioricet, continue with some Respiratory distress and using Oxygen, no nausea, vomit or diarrhea. Objective Vital Signs Date Time Temp Pulse Resp B/P Pulse Ox O2 Delivery O2 Flow Rate FiO2 02/19/17 08:00 98.0 93 20 175/89 93 02/19/17 04:52 97.6 92 16 157/81 94 02/18/17 23:00 97.7 79 16 163/93 96 02/18/17 20:00 97.6 89 16 155/87 95 02/18/17 16:00 99.3 88 18 144/86 97 02/18/17 15:25 95 21 02/18/17 11:56 98.1 87 18 149/81 95 I/O 02/18/17 02/18/17 02/18/17 02/19/17 02/19/17 02/19/17 07:00 15:00 23:00 07:00 15:00 23:00 Intake Total 480 ml 480 ml 720 ml Balance 480 ml 480 ml 720 ml Intake Oral 480 ml 480 ml 720 ml # Voids 3 2 5 # Bowel Movements 0 0 0 Result Diagram: 02/18/17 0318 02/17/17 1530 Imaging Last Impressions Chest X-Ray 02/17/17 0000 Signed Impressions: Service Date/Time: Friday, February 17, 2017 12:46 - CONCLUSION: Subtle patchy interstitial densities could be acute or chronic. Christ Saucedo MD Procedures No procedures performed. Other Results Laboratory Tests Test 02/17/17 02/17/17 02/17/17 02/17/17 12:01 12:08 15:30 20:43 Urine Color YELLOW Urine Turbidity CLEAR Urine pH 6.5 Urine Specific [place] 1.006 Urine Protein 30 mg/dL Urine Glucose (UA) NEG mg/dL Urine Ketones NEG mg/dL Urine Occult Blood SMALL Urine Nitrite NEG Urine Bilirubin NEG Urine Urobilinogen LESS THAN 2.0 MG/DL Urine Leukocyte Esterase NEG Urine RBC 1 /hpf Urine WBC LESS THAN 1 /hpf Urine Squamous Epithelial 2 /hpf Cells Urine Hyaline Casts 1 /lpf Microscopic Urinalysis Comment CULT NOT INDICATED Magnesium Level 2.2 MG/DL Total Bilirubin 0.6 MG/DL Aspartate Amino Transf 33 U/L (AST/SGOT) Alanine Aminotransferase 14 U/L (ALT/SGPT) Alkaline Phosphatase 135 U/L Total Protein 7.6 GM/DL Albumin 2.5 GM/DL Ethyl Alcohol Level LESS THAN 3 MG/DL Sodium Level 135 MEQ/L Potassium Level 3.5 MEQ/L Chloride Level 101 MEQ/L Carbon Dioxide Level 23.6 MEQ/L Anion Gap 10 MEQ/L Blood Urea Nitrogen 5 MG/DL Creatinine 0.56 MG/DL Estimat Glomerular Filtration 113 ML/MIN Rate Random Glucose 144 MG/DL Calcium Level 8.4 MG/DL Lactic Acid Level 3.1 mmol/L Test 02/18/17 03:18 White Blood Count 10.1 TH/MM3 Red Blood Count 4.12 MIL/MM3 Hemoglobin 11.6 GM/DL Hematocrit 35.4 % Mean Corpuscular Volume 86.0 FL Mean Corpuscular Hemoglobin 28.1 PG Mean Corpuscular Hemoglobin 32.7 % Concent Red Cell Distribution Width 17.2 % Platelet Count 316 TH/MM3 Mean Platelet Volume 7.8 FL Neutrophils (%) (Auto) 83.8 % Lymphocytes (%) (Auto) 8.9 % Monocytes (%) (Auto) 6.9 % Eosinophils (%) (Auto) 0.0 % Basophils (%) (Auto) 0.4 % Neutrophils # (Auto) 8.4 TH/MM3 Lymphocytes # (Auto) 0.9 TH/MM3 Monocytes # (Auto) 0.7 TH/MM3 Eosinophils # (Auto) 0.0 TH/MM3 Basophils # (Auto) 0.0 TH/MM3 CBC Comment DIFF FINAL Differential Comment Prothrombin Time 9.9 SEC Prothromb Time International 0.9 RATIO Ratio Hemoglobin A1c 5.2 % Phosphorus Level 2.4 MG/DL Total Creatine Kinase 25 U/L Troponin I LESS THAN 0.02 NG/ML Triglycerides Level 76 MG/DL Cholesterol Level 117 MG/DL LDL Cholesterol 55 MG/DL HDL Cholesterol 47.2 MG/DL Cholesterol/HDL Ratio 2.47 RATIO Lipase 102 U/L Free Thyroxine 0.83 NG/DL Thyroid Stimulating Hormone 1.560 uIU/ML 3rd Gen Objective Remarks GENERAL: Well-nourished, well-developed female patient, ambulatory. Afebrile. SKIN: Focused skin assessment warm/dry. HEAD: Normocephalic. Atraumatic. EYES: No scleral icterus. No injection or drainage. NECK: Supple, trachea midline. No JVD or lymphadenopathy. CARDIOVASCULAR: Regular rate and rhythm without murmurs, gallops, or rubs. RESPIRATORY: Decreased breath sounds bilateral, no wheezing or crackles. GASTROINTESTINAL: Abdomen soft, non-tender, nondistended. MUSCULOSKELETAL: No cyanosis, or edema. BACK: Nontender without obvious deformity. No CVA tenderness. Medications and IVs Current Medications Medications (Trade) Dose Ordered Sig/Evens Route Start Time Stop Time Status Last Admin (Abilify) 2 mg DAILY PO 02/18/17 09:00 02/18/17 08:41 (Tenormin) 50 mg DAILY PO 02/18/17 09:00 02/18/17 08:41 (Synthroid) 100 mcg DAILY@0600 PO 02/18/17 06:00 02/19/17 05:00 (Paxil) 30 mg DAILY PO 02/18/17 09:00 02/18/17 08:41 Pravastatin Sodium 80 mg 80 mg DAILY PO 02/18/17 09:00 02/18/17 08:41 (NS 1000 ml Inj) 1,000 ml @ 100 mls/hr Q10H IV 02/17/17 15:00 02/19/17 05:00 (NS Flush) 2 ml UNSCH PRN IV FLUSH 02/17/17 14:30 (NS Flush) 2 ml BID IV FLUSH 02/17/17 21:00 02/18/17 08:38 (Tylenol) 650 mg Q4H PRN PO 02/17/17 14:30 02/18/17 19:35 (Zofran Inj) 4 mg Q6H PRN IVP 02/17/17 14:30 02/18/17 19:35 (Dulcolax Supp) 10 mg DAILY PRN RECTAL 02/17/17 14:30 (Colace) 100 mg Q12HR PO 02/17/17 14:45 02/18/17 20:46 (Lovenox Inj) 40 mg Q24H SQ 02/17/17 15:00 02/18/17 13:54 (Narcan Inj) 0.4 mg UNSCH PRN IV 02/17/17 14:30 (Romazicon Inj) 0.2 mg Q1M PRN IV PUSH 02/17/17 14:45 (Ativan) 1 mg Q4H PRN PO 02/17/17 14:45 02/19/17 05:00 (Ativan Inj) 1 mg Q4H PRN IV PUSH 02/17/17 14:45 Lorazepam 1 mg 1 mg Q2H PRN PO 02/17/17 14:45 Multivitamins 10 ml/Folic Acid 1 mg/Sodium Chloride 510.2 ml @ 125 mls/hr Q24H IV 02/17/17 16:00 02/22/17 15:59 02/18/17 15:43 (Thiamine Inj/NS Inj) 101 ml @ 100 mls/hr Q24H IV 02/17/17 15:00 02/20/17 14:59 02/18/17 13:53 (Vitamin B1) 100 mg DAILY PO 02/21/17 09:00 (Mucinex Er) 600 mg BID PO 02/17/17 21:00 02/18/17 20:46 Miscellaneous 1 ea 1 ea UNSCH PRN OTHER 02/18/17 09:00 Ceftriaxone Sodium 1000 mg/ Sodium Chloride 100 ml @ 200 mls/hr Q24H IV 02/18/17 09:00 02/18/17 08:38 (Zithromax Inj/ NS 250 ml Inj) 250 ml @ 250 mls/hr Q24H IV 02/18/17 09:00 02/18/17 08:38 A/P Assessment and Plan 1. Pneumonia, CXR showed subtle patchy interstitial densities, continue Azithromycin and Ceftriaxone. follow blood cultures, legionella antigen and pneumococcal antigen, will need at least three days of IV antibiotics, will follow in am tomorrow with new CXR taken downstairs, no portable to have a better view. if no BSI change to by mouth antibiotics and discharge home. Leukocytosis decreased from 19.7 to 10.1 will complete the three days of antibiotics and discharge Home. 2. Medical non compliance she states is not taking her medicines 3. OA by history 4. Bipolar disorder/Depression/Anxiety disorder to continue home medicines 5. CAD/Hypertension continue Home medicines 6. COPD on Bronchodilator, mucolytic and incentive spirometry no signs of exacerbation 7. GERD on GI protection with Protonix. 8. Hypothyroidism continue Hormonal replacement. DVT prophylaxis with Lovenox Code Status Full Code. Discussed Condition With Patient and Nurse. Discharge Planning Expected by tomorrow. Kulwinder Crawford MD February 19, 2017 08:12
[2017-02-19] MEDS ORDERED: cloNIDine HCL 0.1 MG TAB PO PRN (08:15)
[2017-02-19] MEDS: PARoxetine HCL 20 MG TAB PO SCH (08:57)
[2017-02-19] MEDS: cefTRIAXone INJ 1,000 MG in SODIUM CHLORIDE 0.9% INJ 100 ML IV SCH (08:57)
[2017-02-19] MEDS: DOCUSATE SODIUM 100 MG CAP PO SCH (08:57)
[2017-02-19] MEDS: guaiFENesin E.R. 600 MG TAB PO SCH (08:57)
[2017-02-19] MEDS: PRAVASTATIN SOD 80 MG TAB PO SCH (08:58)
[2017-02-19] MEDS: ARIPiprazole 2 MG TAB PO SCH (08:58)
[2017-02-19] MEDS: AZITHROMYCIN INJ 500 MG in SODIUM CHLOR 0.9% 250 ML INJ 250 ML IV SCH (08:58)
[2017-02-19] MEDS: SODIUM CHLORIDE 0.9% FLUSH 10 ML FLUSH IV FLUSH SCH (08:58)
[2017-02-19] MEDS: ATENOLOL 50 MG TAB PO SCH (08:58)
[2017-02-19 09:03] VITALS: O2SAT 94
--- NOTE | 2017-02-19 09:33 | RADRPT ---
EXAM DATE/TIME: 02/19/2017 08:02 [facility] COMPARISON: CHEST PA & LAT, August 07, 2016, 14:54. INDICATIONS : Patient has been short of breath for one week. MEDICAL HISTORY : Chronic obstructive pulmonary disease. Pneumothorax with chest tube SURGICAL HISTORY : None. ENCOUNTER: Subsequent ACUITY: 3 days PAIN SCORE: 6/10 LOCATION: Left chest FINDINGS: Diffuse infiltrates are noted consistent with moderate to severe pulmonary edema versus pneumonia. C linical correlation is recommended. The heart is stable. Degenerative changes and scoliosis of the thoracic spine are noted. CONCLUSION: 1. Diffuse infiltrates consistent with moderate to severe pulmonary edema versus pneumonia. Clinica l correlation is recommended. 2. Degenerative changes and scoliosis of the thoracic spine. Cristian Cristina MD on February 19, 2017 at 9:17 Board Certified Radiologist. This report was verified electronically.
[2017-02-19] MEDS: ACETAMINOPHEN 325 MG TAB PO PRN (11:13)
[2017-02-19 12:00] VITALS: BP 151/79; PULSE 85; RESP 18; TEMP 97.8; O2SAT 93
[2017-02-19] MEDS: THIAMINE INJ 100 MG in SODIUM CHLORIDE 0.9% INJ 100 ML IV SCH (14:31)
[2017-02-19] MEDS: ENOXAPARIN SODIUM 40 MG/0.4 ML SYRINGE SQ SCH (14:31)
[2017-02-19] MEDS: MULTIVITAMIN INJ 10 ML, FOLIC ACID INJ 1 MG in SODIUM CHLORID 0.9% 500 ML INJ 500 ML IV SCH (15:47)
[2017-02-19 16:00] VITALS: BP 142/71; PULSE 103; RESP 18; TEMP 98.1; O2SAT 94
[2017-02-19] MEDS ORDERED: ACETAMIN 325 MG/BUTALBITAL 50 MG/CAFFEINE 40 MG TAB PO PRN (16:15)
--- NOTE | 2017-02-21 08:12 | HHI.DS ---
Discharge Summary Admission Date February 17, 2017 at 14:36 Discharge Date: February 19, 2017 Admitting Diagnosis pneumonia, possible alcohol withdrawal (1) Pneumonia ICD Code: J18.9 Diagnosis: Principal Procedures No procedures performed. Brief History - From Admission This is a pleasant 51 y/o Female who came to ER with flu like symptoms, for the last week, intermittent fever, Nausea, vomit diarrhea, cough, Intermittent wheezing, Intermittent shortness of breath, fever 101 F. 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 Patient is concerned she will have a seizure. She states her last seizure was in July 2016 from alcohol withdrawal. the patient states she is been having SOB, fever, malaise for the last one week , but since three days ago tried to detox herself at home then say she drank six beers yesterday, [facility] Ciprofloxacin, Tessalon pearls antihistamine medicine without improvement, decided to some today for evaluation. CBC/BMP: 02/18/17 0318 02/17/17 1530 Imaging Last Impressions Chest X-Ray 02/19/17 0700 Signed Impressions: Service Date/Time: Sunday, February 19, 2017 08:02 - CONCLUSION: 1. Diffuse infiltrates consistent with moderate to severe pulmonary edema versus pneumonia. Clinical correlation is recommended. 2. Degenerative changes and scoliosis of the thoracic spine. Cristian Cristina MD PE at Discharge Patient Signed AMA Hospital Course This is a pleasant 51 y/o Female who came to ER with flu like symptoms, for the last week, intermittent fever, Nausea, vomit diarrhea, cough, Intermittent wheezing, Intermittent shortness of breath, fever 101 F. 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 Patient is concerned she will have a seizure. She states her last seizure was in July 2016 from alcohol withdrawal. the patient states she is been having SOB, fever, malaise for the last one week , but since three days ago tried to detox herself at home then say she drank six beers yesterday, [facility] Ciprofloxacin, Tessalon pearls antihistamine medicine without improvement, decided to some today for evaluation. 02/18: Seen in her bedroom, discussed with nurse, refused Nicotine patch, states is improved, no nausea, vomit or diarrhea, continue present care, no signs of withdrawal. 02/19: Patient in her bedroom, stable continue antibiotics, today asked for Headache medicine started on Fioricet, continue with some Respiratory distress and using Oxygen, no nausea, vomit or diarrhea. was taken a new CXR today and has Diffuse infiltrates consistent with moderate to severe pulmonary edema versus pneumonia. will continue IV antibiotics ,but the patient decided to sign Against medical advise Service Date/Time: Sunday, February 19, 2017 08:02 - CONCLUSION: 1. Diffuse infiltrates consistent with moderate to severe pulmonary edema versus pneumonia. Clinical correlation is recommended. 2. Degenerative ch Assessment and Plan 1. Pneumonia, CXR showed subtle patchy interstitial densities, continue Azithromycin and Ceftriaxone. follow blood cultures, legionella antigen and pneumococcal antigen, will need at least three days of IV antibiotics, will follow in am tomorrow with new CXR taken downstairs, no portable to have a better view. if no BSI change to by mouth antibiotics and discharge home. Leukocytosis decreased from 19.7 to 10.1 will complete the three days of antibiotics and discharge Home. 2. Medical non compliance she states is not taking her medicines 3. OA by history 4. Bipolar disorder/Depression/Anxiety disorder to continue home medicines 5. CAD/Hypertension continue Home medicines 6. COPD on Bronchodilator, mucolytic and incentive spirometry no signs of exacerbation 7. GERD on GI protection with Protonix. 8. Hypothyroidism continue Hormonal replacement. DVT prophylaxis with Lovenox Code Status Full Code. Discussed Condition With Patient and Nurse. Discharge Planning Expected by tomorrow. Patient Signed AMA all the consequences of her decision where disclosed by nurse and the patient decided to sign Against Medical Advise. Pt Condition on Discharge: Good Discharge Disposition: Discharge Home Discharge Time: <= 30 minutes Kulwinder Crawford MD February 21, 2017 08:12
[2017-02-21] MEDS ORDERED: THIAMINE HCL 100 MG TAB PO SCH (09:00)
== END 2017-02-19 18:54 | disposition left against medical advice (07) ==
LOC: NEPC 11:36 → NEDA 14:36 → N04B 17:52
PROVIDERS: ADMIT Internal Medicine; ATTEND Internal Medicine
DX: J18.9 Pneumonia, unspecified organism (principal); R19.7 Diarrhea, unspecified; R11.2 Nausea with vomiting, unspecified; J44.0 Chronic obstructive pulmonary disease with (acute) lower respiratory infection; I10 Essential (primary) hypertension; F31.9 Bipolar disorder, unspecified; E78.5 Hyperlipidemia, unspecified; E03.9 Hypothyroidism, unspecified; G43.909 Migraine, unspecified, not intractable, without status migrainosus; F10.20 Alcohol dependence, uncomplicated; F10.239 Alcohol dependence with withdrawal, unspecified; R56.9 Unspecified convulsions; M19.90 Unspecified osteoarthritis, unspecified site; E78.00 Pure hypercholesterolemia, unspecified; K21.9 Gastro-esophageal reflux disease without esophagitis; F43.10 Post-traumatic stress disorder, unspecified; F17.210 Nicotine dependence, cigarettes, uncomplicated; Z79.899 Other long term (current) drug therapy; E87.1 Hypo-osmolality and hyponatremia; I25.10 Atherosclerotic heart disease of native coronary artery without angina pectoris; F12.90 Cannabis use, unspecified, uncomplicated; Z91.19 Patient's noncompliance with other medical treatment and regimen; R06.02 Shortness of breath
CPT/HCPCS: 71010; 71020; 80053; 80061; 80307; 81001; 82550; 82948; 83036; 83605; 83690; 83735; 84100; 84439; 84443; 84484; 85025; 85610; 87040; 87449; 93005; 94150; 94640; 94664; 96361; 96365; 96368; 96375; 99285; G0378; J0456; J0696; J1650; J2405; J2930; J3411; J7030; J7040; J7050; 80048

== ENCOUNTER 2017-07-20 14:12 | Emergency (ER) | payer OTHER, MEDICAID ==
[~2017-07-20 14:12] MED LIST changes: +ABIL2TAB2 PO; -AMLO5 PO; -ARIP2 PO; -ATEN-102 PO; +ATEN50TA PO; -LEVA500T PO; -PANT40IN3 PO; +PAXI30TA7 PO; -PAXI40TA PO; -SIMV40TA PO; -THIA100T PO; +ZOCO40TA PO
[2017-07-20 14:20] VITALS: BP 158/92; PULSE 106; RESP 15; TEMP 98.2; TEMP 98.9; O2SAT 97
== END 2017-07-20 15:05 | disposition left against medical advice (07) ==
LOC: NED 14:12
DX: Z03.89 Encounter for observation for other suspected diseases and conditions ruled out (principal)
CPT/HCPCS: 99281

== ENCOUNTER 2017-10-30 21:33 | Emergency (ER) | payer OTHER, MEDICAID ==
[~2017-10-30] VITALS: Ht 172.7 cm; Wt 62.0 kg
[~2017-10-30 21:33] MED LIST changes: -ABIL2TAB2 PO; +ARIP2 PO
[2017-10-30 21:35] VITALS: PULSE 84; RESP 16; TEMP 99.2; O2SAT 98
[2017-10-31 00:21] VITALS: BP_SYST 100; BP_SYST 110; BP_DIAS 78; BP_DIAS 80; PULSE 74; RESP 14; TEMP 98.7; O2SAT 95
[2017-10-31 00:51] LABS: AUTOMATED NEUTROPHIL # 5.5 TH/MM3 (1.8-7.7); BASOPHIL # 0.1 TH/MM3 (0-0.2); BASOPHIL % 0.5 % (0.0-2.0); EOSINOPHIL # 0.5 TH/MM3 (0-0.4); EOSINOPHIL % 4.2 % (0.0-4.0); HEMATOCRIT 40.8 % (35.0-46.0); LYMPH % 36.9 % (9.0-44.0); LYMPHOCYTE # 3.9 TH/MM3 (1.0-4.8); MEAN CELL VOLUME 93.3 FL (80.0-100.0); MEAN CORPUSCULAR HEMOGLOBIN 31.9 PG (27.0-34.0); MEAN CORPUSCULAR HGB CONC 34.2 % (32.0-36.0); MONO % 6.4 % (0.0-8.0); MONOCYTE # 0.7 TH/MM3 (0-0.9); PLATELET COUNT 382 TH/MM3 (150-450); RED BLOOD COUNT 4.37 MIL/MM3 (4.00-5.30); RED CELL DISTRIBUTION WIDTH 13.5 % (11.6-17.2); WHITE BLOOD COUNT 10.6 TH/MM3 (4.0-11.0)
[2017-10-31 00:56] LABS: ALT (GPT) 19 U/L (10-53); AST (GOT) 19 U/L (15-37); BICARBONATE 23.1 MEQ/L (21.0-32.0); BLOOD UREA NITROGEN 9 MG/DL (7-18); CALCIUM 7.9 MG/DL (8.5-10.1); CHLORIDE 106 MEQ/L (98-107); CREATININE 0.82 MG/DL (0.50-1.00); GLOMERULAR FILTRATION RATE 73 ML/MIN (>89); GLUCOSE,RANDOM 80 MG/DL (74-106); SODIUM (NA) 140 MEQ/L (136-145)
[2017-10-31 01:00] LABS: ALKALINE PHOSPHATASE 89 U/L (45-117); TOTAL BILIRUBIN ADULT LESS THAN 0.1 MG/DL (0.2-1.0); TOTAL PROTEIN 7.1 GM/DL (6.4-8.2)
[2017-10-31 02:19] VITALS: BP 84/51; PULSE 73; RESP 18; TEMP 98.2; O2SAT 94
[2017-10-31 03:08] VITALS: BP 85/57
--- NOTE | 2017-10-31 04:39 | PD ---
HPI Chief Complaint: Psychiatric Symptoms Time Seen by Provider: 02:00 Travel History International Travel<30 days: No Contact w/Intl Traveler<30days: No Traveled to known affect area: No History of Present Illness HPI 52-year-old white female presents to emergency department under [place] act by PD. The patient had notified police that she was feeling depressed and suicidal. She was noted to be drinking alcohol at the time of the interaction. And that she wanted to finish her 4 [place] before she could be evaluated by PD. The patient here states that she's been overwhelmed with stressors at home. She states that she is caring for her elderly mother. She treats her as if she is a child. She does not feel that she is given any respect. She states that she is very intelligent and that she accomplished everything she's ever put her mind 2. Patient also admits to history of alcohol abuse. She does smoke marijuana on occasion. She does smoke cigarettes. She admits to feeling suicidal. She does not have any active plan. She denies any homicidal ideation. No toxic ingestions. She does complain of a headache, cough and some wheezing. Patient has a history of COPD but does not have any inhalers at this time. PFSH Past Medical History Hx Anticoagulant Therapy: No Arthritis: Yes Asthma: No Blood Disorders: No Bipolar Disorder: Yes Anxiety: Yes Depression: Yes Cancer: No Cardiovascular Problems: Yes (HBP) High Cholesterol: Yes Chemotherapy: No COPD: Yes Cerebrovascular Accident: No Diabetes: No Diminished Hearing: No Endocrine: Yes Gastrointestinal Disorders: Yes GERD: Yes Genitourinary: No Headaches: Yes Hiatal Hernia: No Immune Disorder: No Implanted Vascular Access Dvce: No Musculoskeletal: Yes Neurologic: Yes (seizures) Psychiatric: Yes (PTSD) Reproductive: No Respiratory: Yes (COPD) Migraines: Yes Radiation Therapy: No Seizures: Yes (APPROX 1 YR AGO) Sleep Apnea: No Thyroid Disease: Yes (hypo) Ulcer: No Tetanus Vaccination: < 5 Years ?: Unknown Menopausal: Yes : 3 Para: 0 Miscarriage: 3 : 0 Past Surgical History AICD: No Arteriovenous Shunt: No Gynecologic Surgery: Yes (LAPAROSCOPIC OVARIAN CYST REMOVAL LEFT) Hysterectomy: No Insulin Pump: No Joint Replacement: No Pacemaker: No Thoracic Surgery: Yes (DILITATION ESOPHAGEAL 12/29) Other Surgery: Yes (Laproscopy) Social History Alcohol Use: Yes (DAILY) Tobacco Use: Yes (1/2 PPD) Substance Use: Yes Allergies-Medications (Allergen,Severity, Reaction): Coded Allergies: codeine (Unverified Adverse Reaction, Severe, Itching, 06/04/17) haloperidol (Unverified Adverse Reaction, Severe, Nausea/Vomiting, 06/04/17 ) ketorolac (Unverified Adverse Reaction, Severe, 06/04/17) MAKES HER "WALK SIDEWAYS" AND "RUN INTO THINGS" tramadol (Unverified Adverse Reaction, Severe, 06/04/17) MAKE HER "WALK SIDEWAYS" AND "RUN INTO THINGS" trazodone (Unverified Adverse Reaction, Severe, Hallucinations, 06/04/17) Reported Meds & Prescriptions Reported Meds & Active Scripts Active Reported Zocor (Simvastatin) 40 Mg Tab 40 Mg PO DAILY Abilify (Aripiprazole) 2 Mg Tab 2 Mg PO DAILY Atenolol 50 Mg Tab 50 Mg PO DAILY Synthroid (Levothyroxine Sodium) 100 Mcg Tab 100 Mcg PO DAILY Paxil (Paroxetine HCl) 30 Mg Tab 30 Mg PO DAILY Review of Systems General / Constitutional: No: Fever Eyes: No: Visual changes HENT: Positive: Headaches Cardiovascular: No: Chest Pain or Discomfort Respiratory: Positive: Cough, Wheezing, No: Shortness of Breath Gastrointestinal: No: Nausea, Vomiting, Abdominal Pain Genitourinary: No: Dysuria Musculoskeletal: Positive: Arthralgias, No: Pain Skin: No Rash Neurologic: Positive: Headache, No: Weakness Psychiatric: Positive: Depression, Suicidal Ideations, Mood Disorder, Substance Abuse, No: Anxiety, Disorder of Thought, Homicidal Ideation Endocrine: No: Polydipsia Hematologic/Lymphatic: No: Easy Bruising Physical Exam Narrative GENERAL: Well-nourished, well-developed patient. SKIN: Warm and dry. HEAD: Normocephalic and atraumatic. EYES: No scleral icterus. No injection or drainage. ENT: No nasal drainage noted. Mucous membranes pink. Airway patent. NECK: Supple, trachea midline. Moves head freely without obvious discomfort. CARDIOVASCULAR: Regular rate and rhythm without murmurs, gallops, or rubs. RESPIRATORY: Breath sounds equal bilaterally. No accessory muscle use. GASTROINTESTINAL: Abdomen soft, non-tender, nondistended. EXTREMITIES: No cyanosis or edema. BACK: Nontender without obvious deformity. No CVA tenderness. NEURO: Patient is alert and oriented. no sensorimotor deficits. Nonfocal. Normal speech. PSYCH: No delusions. No auditory or visual hallucinations. Data Data Last Documented VS Vital Signs Date Time Temp Pulse Resp B/P (MAP) Pulse Ox O2 Delivery O2 Flow Rate FiO2 10/31/17 03:08 85/57 (66) 10/31/17 02:19 98.2 73 18 94 Room Air Orders Orders Complete Blood Count With Diff (10/31/17 00:12) Comprehensive Metabolic Panel (10/31/17 00:12) Psych Screen (10/31/17 00:12) Drug Screen, Random Urine (10/31/17 00:12) Alcohol (Ethanol) (10/31/17 00:12) Labs Laboratory Tests Test 10/31/17 00:20 White Blood Count 10.6 TH/MM3 Red Blood Count 4.37 MIL/MM3 Hemoglobin 14.0 GM/DL Hematocrit 40.8 % Mean Corpuscular Volume 93.3 FL Mean Corpuscular Hemoglobin 31.9 PG Mean Corpuscular Hemoglobin Concent 34.2 % Red Cell Distribution Width 13.5 % Platelet Count 382 TH/MM3 Mean Platelet Volume 7.0 FL Neutrophils (%) (Auto) 52.0 % Lymphocytes (%) (Auto) 36.9 % Monocytes (%) (Auto) 6.4 % Eosinophils (%) (Auto) 4.2 % Basophils (%) (Auto) 0.5 % Neutrophils # (Auto) 5.5 TH/MM3 Lymphocytes # (Auto) 3.9 TH/MM3 Monocytes # (Auto) 0.7 TH/MM3 Eosinophils # (Auto) 0.5 TH/MM3 Basophils # (Auto) 0.1 TH/MM3 CBC Comment DIFF FINAL Differential Comment Blood Urea Nitrogen 9 MG/DL Creatinine 0.82 MG/DL Random Glucose 80 MG/DL Total Protein 7.1 GM/DL Albumin 3.0 GM/DL Calcium Level 7.9 MG/DL Alkaline Phosphatase 89 U/L Aspartate Amino Transf (AST/SGOT) 19 U/L Alanine Aminotransferase (ALT/SGPT) 19 U/L Total Bilirubin LESS THAN 0.1 MG/DL Sodium Level 140 MEQ/L Potassium Level 4.0 MEQ/L Chloride Level 106 MEQ/L Carbon Dioxide Level 23.1 MEQ/L Anion Gap 11 MEQ/L Estimat Glomerular Filtration Rate 73 ML/MIN Ethyl Alcohol Level 294 MG/DL MDM Medical Decision Making Medical Screen Exam Complete: Yes Emergency Medical Condition: Yes Medical Record Reviewed: Yes Interpretation(s) Laboratory Tests Test 10/31/17 00:20 White Blood Count 10.6 TH/MM3 Red Blood Count 4.37 MIL/MM3 Hemoglobin 14.0 GM/DL Hematocrit 40.8 % Mean Corpuscular Volume 93.3 FL Mean Corpuscular Hemoglobin 31.9 PG Mean Corpuscular Hemoglobin Concent 34.2 % Red Cell Distribution Width 13.5 % Platelet Count 382 TH/MM3 Mean Platelet Volume 7.0 FL Neutrophils (%) (Auto) 52.0 % Lymphocytes (%) (Auto) 36.9 % Monocytes (%) (Auto) 6.4 % Eosinophils (%) (Auto) 4.2 % Basophils (%) (Auto) 0.5 % Neutrophils # (Auto) 5.5 TH/MM3 Lymphocytes # (Auto) 3.9 TH/MM3 Monocytes # (Auto) 0.7 TH/MM3 Eosinophils # (Auto) 0.5 TH/MM3 Basophils # (Auto) 0.1 TH/MM3 CBC Comment DIFF FINAL Differential Comment Blood Urea Nitrogen 9 MG/DL Creatinine 0.82 MG/DL Random Glucose 80 MG/DL Total Protein 7.1 GM/DL Albumin 3.0 GM/DL Calcium Level 7.9 MG/DL Alkaline Phosphatase 89 U/L Aspartate Amino Transf (AST/SGOT) 19 U/L Alanine Aminotransferase (ALT/SGPT) 19 U/L Total Bilirubin LESS THAN 0.1 MG/DL Sodium Level 140 MEQ/L Potassium Level 4.0 MEQ/L Chloride Level 106 MEQ/L Carbon Dioxide Level 23.1 MEQ/L Anion Gap 11 MEQ/L Estimat Glomerular Filtration Rate 73 ML/MIN Ethyl Alcohol Level 294 MG/DL Differential Diagnosis MDM: High Differential diagnoses: Schizophrenia, schizoaffective disorder, bipolar, anxiety, depression, adjustment reaction, mood disorder NOS, ODD, depressive disorder NOS, dementia, dementia with agitation, psychosis NOS, substance induced mood disorder, DMDD, Asperger syndrome, infection,electrolyte abnormality, malingering. Narrative Course Mental health screening discussed with the patient. Psychiatric screen ordered. The patient is been medically cleared. This is medical clearance for psychiatric admission, COPD, alcohol abuse with intoxication Diagnosis Primary Impression: COPD (chronic obstructive pulmonary disease) Qualified Codes: J43.9 - Emphysema, unspecified Additional Impressions: Alcohol intoxication in active alcoholic Qualified Codes: F10.220 - Alcohol dependence with intoxication, uncomplicated Medical clearance for psychiatric admission Condition: Stable Sarath Treviño Oct 31, 2017 04:39
[2017-10-31 06:10] VITALS: BP 86/62; PULSE 75; RESP 18; O2SAT 96
[2017-10-31] MEDS ORDERED: LORazepam 1 MG TAB PO PRN (09:15)
[2017-10-31] MEDS ORDERED: FLUMAZENIL 0.5 MG/5 ML VIAL IV PUSH PRN (09:15)
[2017-10-31] MEDS ORDERED: LORazepam 2 MG TAB PO PRN (09:15)
[2017-10-31] MEDS ORDERED: LORazepam 2 MG/ML VIAL IV PUSH PRN ×4 (09:15)
[2017-10-31 11:02] VITALS: BP 117/85; PULSE 82; RESP 18; O2SAT 97
== END 2017-10-31 15:58 ==
LOC: NEPJ 21:33
DX: J43.9 Emphysema, unspecified (principal); F10.220 Alcohol dependence with intoxication, uncomplicated; R45.851 Suicidal ideations; F17.210 Nicotine dependence, cigarettes, uncomplicated; F12.90 Cannabis use, unspecified, uncomplicated; F31.9 Bipolar disorder, unspecified; E78.00 Pure hypercholesterolemia, unspecified; F43.10 Post-traumatic stress disorder, unspecified; E03.9 Hypothyroidism, unspecified
CPT/HCPCS: 80053; 80307; 85025; 99285

== ENCOUNTER 2018-02-24 12:08 | Emergency (ER) | payer OTHER, MEDICAID ==
[2018-02-24 14:14] LABS: BILIRUBIN, URINE NEG (NEG); BLOOD, URINE NEG (NEG); GLUCOSE,URINE NEG (NEG); KETONE, URINE NEG (NEG); NITRITE,URINE NEG (NEG); PH, URINE 5.5 (5.0-8.5); URINE COLOR COLORLESS (YELLW/STRAW); URINE LEUKOCYTE ESTERASE NEG (NEG)
[2018-02-24 14:15] LABS: COMMENT (UR) CULT NOT INDICATED; CULTURE IF INDICATED CULT NOT INDICATED
[2018-02-24 14:16] LABS: AUTOMATED NEUTROPHIL # 7.2 TH/MM3 (1.8-7.7); BASOPHIL # 0.1 TH/MM3 (0-0.2); BASOPHIL % 0.5 % (0.0-2.0); EOSINOPHIL # 0.1 TH/MM3 (0-0.4); EOSINOPHIL % 1.2 % (0.0-4.0); HEMATOCRIT 45.8 % (35.0-46.0); HEMO FLAGS DIFF FINAL; HEMOGLOBIN 15.5 GM/DL (11.6-15.3); LYMPH % 26.4 % (9.0-44.0); LYMPHOCYTE # 2.8 TH/MM3 (1.0-4.8); MEAN CELL VOLUME 87.6 FL (80.0-100.0); MEAN CORPUSCULAR HEMOGLOBIN 29.6 PG (27.0-34.0); MEAN CORPUSCULAR HGB CONC 33.8 % (32.0-36.0); MEAN PLATELET VOLUME 6.9 FL (7.0-11.0); MONO % 4.2 % (0.0-8.0); MONOCYTE # 0.4 TH/MM3 (0-0.9); NEUT % 67.7 % (16.0-70.0); PLATELET COUNT 460 TH/MM3 (150-450); RED BLOOD COUNT 5.23 MIL/MM3 (4.00-5.30); RED CELL DISTRIBUTION WIDTH 16.1 % (11.6-17.2); WHITE BLOOD COUNT 10.7 TH/MM3 (4.0-11.0)
[2018-02-24 14:31] LABS: ALT (GPT) 25 U/L (10-53)
[2018-02-24 14:34] LABS: ALBUMIN 3.1 GM/DL (3.4-5.0); ANION GAP 15 MEQ/L (5-15); AST (GOT) 39 U/L (15-37); BICARBONATE 23.5 MEQ/L (21.0-32.0); BLOOD UREA NITROGEN 11 MG/DL (7-18); CALCIUM 8.1 MG/DL (8.5-10.1); CHLORIDE 102 MEQ/L (98-107); CREATININE 0.68 MG/DL (0.50-1.00); GLOMERULAR FILTRATION RATE 90 ML/MIN (>89); GLUCOSE,RANDOM 78 MG/DL (74-106); SODIUM (NA) 140 MEQ/L (136-145)
[2018-02-24 14:41] LABS: ALKALINE PHOSPHATASE 112 U/L (45-117); TOTAL BILIRUBIN ADULT 0.2 MG/DL (0.2-1.0); TOTAL PROTEIN 7.9 GM/DL (6.4-8.2)
[2018-02-24 14:49] LABS: ACETAMINOPHEN LESS THAN 2.0 MCG/ML (10.0-30.0); ALCOHOL 366 MG/DL (0-5); POTASSIUM 4.2 MEQ/L (3.5-5.1)
[2018-02-24 15:40] LABS: AMPHETAMINE, URINE NEG (NEG); BARBITURATES, URINE NEG (NEG); BENZODIAZEPINE,URINE NEG (NEG); CANNABINOIDS, URINE NEG (NEG); COCAINE, URINE NEG (NEG)
== END 2018-02-24 15:40 | disposition left against medical advice (07) ==
LOC: NEPD 15:40
DX: R45.851 Suicidal ideations (principal); F10.129 Alcohol abuse with intoxication, unspecified; F17.200 Nicotine dependence, unspecified, uncomplicated; E03.9 Hypothyroidism, unspecified; I10 Essential (primary) hypertension; Y90.8 Blood alcohol level of 240 mg/100 ml or more; Z79.899 Other long term (current) drug therapy
CPT/HCPCS: 80053; 80307; 81001; 84443; 85025; 99283